=== PATIENT | female | born 1980 | race African-American/Black ===

== ENCOUNTER → 2018-11-14 | Emergency (ER) | payer MEDICAID ==
[~2018-11-14] VITALS: Ht 170.2 cm; Wt 83.9 kg
[~2018-11-14] MED LIST: PREDNISONE20 MG ORAL
[2018-11-14 11:37] VITALS: BP 129/83
[2018-11-14 12:47] VITALS: BP 125/78
--- NOTE | 2018-11-14 12:47 | NUR ---
ER DISCHARGE NOTE: Pt was seen due to rashes. Patient is cleared to be discharged per ERMD, pt is aox4, on room air, with stable vital signs. pt was given dc and prescription instructions, pt was able to verbalize understanding, pt id band removed. pt is able to ambulate with steady gait. pt took all belongings.
--- NOTE | 2018-11-15 06:38 | Emergency Room Report ---
History of Present Illness General Chief Complaint: Skin Rash/Abscess Source: Patient Present Illness HPI Patient is a 38-year-old female presented after increased generalized skin rash. She reports having a rash primarily to her upper extremities as well as to the area underneath her breast. She reports that this was itchy. She states that she had previously seen her primary care physician who had prescribed her antifungal creams. She denies any improvement. She states this is been present for several days. Patient reports having primarily itchiness to the upper extremities. She denies any forehead rash or recent fevers. She denies any recent illness. She denies any other skin lesions to her extremities or genitalia. Allergies: Coded Allergies: No Known Allergies (Unverified , 11/14/18) Patient History Past Medical History: see triage record Last Menstrual Period: 10/2018 Now: No Reviewed Nursing Documentation: PMH: Agreed; PSxH: Agreed Nursing Documentation-PMH Past Medical History: No Stated History Review of Systems All Other Systems: negative except mentioned in HPI Physical Exam Vital Signs Date Time Temp Pulse Resp B/P (MAP) Pulse Ox O2 Delivery O2 Flow Rate FiO2 11/14/18 11:37 98.2 82 20 129/83 97 Room Air General Appearance: well appearing, no apparent distress, alert, GCS 15 Head: normocephalic, atraumatic ENT: hearing grossly normal, normal voice Neck: full range of motion, supple Respiratory: no respiratory distress, speaking full sentences Cardiovascular #1: normal inspection Neurologic: normal inspection, alert, oriented x3, responsive, manager respiratory care III-XII nml as tested, normal gait Psychiatric: mood/affect normal Skin: other - upper extremity and anterior torso, rash, legs spared,no palmar involvement, no facial rash Medical Decision Making Diagnostic Impression: Primary Impression: Pityriasis rosea-like skin eruption ER Course . Patient presented for skin rash. Differential diagnosis include is not limited to pityriasis rosea, contact dermatitis, eczema, among others. Patient has a benign exam and does not appear to require any further imaging or laboratory testing at this time. Patient appears to have some evidence of upper extremity rash which does not appear to be infected. This may be pityriasis rosea or a contact dermatitis. Patient was advised to follow-up with her primary care physician for recheck. She is given prescription for medications for symptomatic treatment. Last Vital Signs Date Time Temp Pulse Resp B/P (MAP) Pulse Ox O2 Delivery O2 Flow Rate FiO2 11/14/18 12:47 98.6 76 17 125/78 98 Room Air Status: improved Disposition: HOME, SELF-CARE Condition: Stable Scripts Prednisone* (PREDNISONE*) 20 Mg Tablet 40 MG ORAL DAILY, #10 TAB Prov: Karlos Ramsey MD 11/14/18 Referrals: [facility]ERR[facility] (PCP) Patient Instructions: Karlos Kan MD Nov 15, 2018 06:38
== END | disposition home or self-care (01) ==
LOC: EMR 13:00
DX: L42 Pityriasis rosea (principal)
CPT/HCPCS: 99282; J7512